=== PATIENT | female | born 1960 | race Caucasian/White ===

== ENCOUNTER → 2017-09-21 | Emergency (ER) | payer OTHER ==
[~2017-09-21] MED LIST: NORVASC2.5 M1
== END | disposition left against medical advice (07) ==
LOC: ER 13:37
DX: Z53.20 Procedure and treatment not carried out because of patient's decision for unspecified reasons (principal)

== ENCOUNTER → 2017-11-02 | Emergency (ER) | payer OTHER ==
[~2017-11-02] VITALS: Ht 170.2 cm; Wt 84.8 kg
[~2017-11-02] MED LIST changes: +LOSARTAN POTASS25 MG
== END | disposition home or self-care (01) ==
LOC: ER 13:39
DX: I10 Essential (primary) hypertension (principal)

== ENCOUNTER → 2021-06-07 | Outpatient (CLI) | payer OTHER | END | disposition home or self-care (01) | LOC: PPH VACUNA 08:00 | PROVIDERS: ATTEND Emergency Medicine Pediatric Emergency Medicine | DX: Z23 Encounter for immunization (principal) ==

== ENCOUNTER 2022-02-27 08:28 | Outpatient (CLI) | payer OTHER | END 2022-02-27 08:30 | disposition home or self-care (01) | LOC: SONOGRAMA 08:28 | PROVIDERS: ATTEND Pathology Anatomic Pathology & Clinical Pathology | DX: E04.8 Other specified nontoxic goiter (principal) ==

== ENCOUNTER 2024-02-12 10:38 | Outpatient (CLI) | payer OTHER | END 2024-02-12 10:49 | disposition home or self-care (01) | LOC: SONOGRAMA 10:38 | PROVIDERS: ATTEND Internal Medicine Gastroenterology | DX: K80.20 Calculus of gallbladder without cholecystitis without obstruction (principal) ==

== ENCOUNTER 2024-05-09 07:36 | Outpatient (CLI) | payer OTHER | END 2024-05-09 07:44 | disposition home or self-care (01) | LOC: TOM 07:36 | PROVIDERS: ATTEND Specialist | DX: K80.10 Calculus of gallbladder with chronic cholecystitis without obstruction (principal) ==

== ENCOUNTER 2024-06-24 06:00 | Day surgery (SDC) | payer OTHER ==
[2024-06-13 10:49] LABS: HEMATOCRIT 39.3 % (36.0-45.00); HEMOGLOBIN 13.4 g/dL (12.0-15.00); MEAN CORPUSCULAR HEMOGLOBIN 31.8 pg (27.00-32.0); MEAN CORPUSCULAR HGB CONC 34.2 g/dl (32.0-36.0); PLATELET COUNT 214 K/uL (150-450); RED BLOOD COUNT 4.22 M/uL (4.00-6.00); RED CELL DISTRIBUTION WIDTH 13.7 % (11.5-14.5)
[2024-06-13 10:51] LABS: PH,URINE 7.5 (5.0-8.0); URINE APPEARANCE Clear; URINE BILIRRUBIN Negative (NEGATIVE); URINE BLOOD Negative; URINE COLOR Yellow; URINE GLUCOSE Negative (NEGATIVE); URINE KETONE Negative (NEGATIVE); URINE LEUKOCYTE Negative; URINE NITRATE Negative; URINE PROTEIN Negative (NEGATIVE); URINE UROBILINOGEN 0.2 E.U./dl
[2024-06-13 10:59] LABS: URINE EPITHELIAL CELLS 4.7 uL (0.0-38.8); URINE RBC 9.1 uL (0.0-20.8); URINE WBC 4.1 uL (0.0-23.2)
[2024-06-13 11:06] LABS: URINE BACTERIA 3.7 uL (0.0-1933)
[2024-06-13 11:14] VITALS: BP 140/85
[2024-06-13 11:17] LABS: INR 0.98; PARTIAL THROMBOPLASTIN TIME 24.9 SECONDS (22.0-34.0); PROTHROMBIN TIME 10.7 SECONDS (9.0-11.5)
[2024-06-13 12:27] LABS: ALBUMIN 3.8 gm/dL (3.4-5.0); BILIRUBIN TOTAL 0.56 mg/dL (0.3-1.2); CALCIUM 9.4 mg/dL (8.5-10.1); CREATININE SERUM 0.78 mg/dL (0.55-1.02); GFR 74.83; GLOBULINA 3.7 G/DL (2.4-3.5); POTASSIUM 4.54 mEq/L (3.5-5.1); TOTAL PROTEIN 7.5 gm/dL (6.4-8.2)
[~2024-06-24] VITALS: Ht 182.9 cm; Wt 5.0 kg
[~2024-06-24 06:00] MED LIST changes: +DILTIAZEM ER120 M2 PO; +INDAPAMIDE1.25 MG; +INDAPAMIDE1.25 MG PO
[2024-06-24] MEDS ORDERED: CEFAZOLIN SODIUM 1,000 MG VIAL IV ONE (07:30)
[2024-06-24] MEDS ORDERED: CHLORHEXIDINE GLUCONATE 120 ML BOTTLE TOP ONE (07:30)
[2024-06-24] MEDS ORDERED: BUPIVACAINE HCL 30 ML VIAL IJ ONE (08:45)
[2024-06-24] MEDS ORDERED: CEFAZOLIN SODIUM 1,000 MG VIAL IV NR (09:45)
[2024-06-24] MEDS ORDERED: FAMOTIDINE/PF 20 MG/2 ML VIAL IV NR (09:45)
[2024-06-24] MEDS ORDERED: SUGAMMADEX SODIUM 200 MG/2 ML VIAL IV ONE (09:45)
[2024-06-24] MEDS ORDERED: MORPHINE SULFATE 4 MG/ML VIAL IV ONE ×2 (09:50→10:20)
== END 2024-06-24 12:55 | disposition home or self-care (01) ==
LOC: SURH 06:00 → O/R 06:00 → CIR.AMB 06:00 → SURH 08:45 → EDSTATUS 09:30 → SURH 09:30 → CIR.AMB 12:55 → O/R 12:55
PROVIDERS: ATTEND Specialist
DX: K80.10 Calculus of gallbladder with chronic cholecystitis without obstruction (principal); Z91.041 Radiographic dye allergy status; Z88.2 Allergy status to sulfonamides; Z88.6 Allergy status to analgesic agent